=== PATIENT | male | born 1950 | race Caucasian/White ===

== ENCOUNTER 2017-02-01 11:50 | Inpatient (IN) | payer OTHER, MEDICARE ==
[~2017-02-01] VITALS: Ht 175.3 cm; Wt 61.7 kg
[2017-02-01] MEDS ORDERED: LISI-515 PO (15:30)
[2017-02-01] MEDS ORDERED: TIZA4CAP3 PO (15:30)
[2017-02-01] MEDS ORDERED: DIAZ5TAB PO (15:30)
[2017-02-01] MEDS ORDERED: PRAV40TA2 PO (15:30)
[2017-02-01] MEDS ORDERED: TRAM50TA PO (15:30)
[2017-02-01] MEDS ORDERED: METO25TA3 PO (15:30)
[2017-02-01] MEDS ORDERED: ASPI325T PO (15:30)
[2017-02-05 10:28] VITALS: BP 166/85; PULSE 69; RESP 16; TEMP 97.7; O2SAT 100
--- NOTE | 2017-02-05 10:32 | PD.VS.PN ---
Pre-operative Note Pre-operative diagnosis: PAD, B LE Planned procedure: R CAMERA SUPERVISOR TEA and B iliac angioplasty/stent Interval History: The patient has no interval changes since clinic that would preclude proceeding with the OR. Labs: Hct 43 plt 269 INR 0.9 creatinine 1.1 Blood: T&S Orders: Ancef 2g IV OCTOR Post-operative destination: PACU then [facility] Operative site marked: Yes Consent: Informed consent has been obtained from Pranav Ortiz. I have explained the procedure in detail and discussed the risks, benefits, and potential complications. All questions have been answered. Patient contact information: Friend [phone] Teddy Mckeon MD Feb 05, 2017 10:32
[2017-02-05] MEDS ORDERED: ceFAZolin 2 GM PREMIX 50 ML ONE (10:41)
[2017-02-05] MEDS ORDERED: PROTAMINE SULFATE 50 MG/5 ML VIAL ONE (10:41)
[2017-02-05] MEDS ORDERED: BUPIVACAINE/EPINEPHRINE 0.5% PF 30 ML VIAL ONE (10:41)
[2017-02-05] MEDS ORDERED: HEPARIN SODIUM - IV 10,000 UNITS/10 ML VIAL ONE (10:41)
[2017-02-05] MEDS ORDERED: DEXAMETHASONE SOD PHOS 4 MG/ML VIAL ONE (10:54)
[2017-02-05] MEDS ORDERED: FAMOTIDINE 20 MG/2 ML VIAL ONE (10:54)
[2017-02-05] MEDS ORDERED: MIDAZOLAM HCL 2 MG/2 ML VIAL ONE (10:54)
[2017-02-05] MEDS ORDERED: IOHEXOL 300 MG/ML 50 ML BTL (for RAD DIAG) ONE (12:18)
[2017-02-05] MEDS ORDERED: IOHEXOL 300 MG/ML 100 ML BTL (for Rad CT) OTHER ONE (12:20)
[2017-02-05] MEDS ORDERED: IOHEXOL 300 MG/ML 50 ML BTL (for RAD DIAG) OTHER ONE (12:20)
[2017-02-05] MEDS ORDERED: ePHEDrine/NS 25 MG/5 ML SYR IV ONE (12:28)
[2017-02-05] MEDS ORDERED: PROPOFOL 200 MG/20 ML AMP IV ONE (12:28)
[2017-02-05] MEDS ORDERED: ONDANSETRON HCL 4 MG/2 ML VIAL IV PUSH ONE (12:30)
[2017-02-05] MEDS ORDERED: SODIUM CHLORID 0.9% 500 ML INJ 500 ML IV ONE (12:31)
[2017-02-05] MEDS ORDERED: NORMOSOL R INJ 2,000 ML IV ONE (12:33)
--- NOTE | 2017-02-05 14:38 | HHI.PR ---
cc: Skyler Mcdonald MD Immediate Post Op Note Procedure Date: Feb 05, 2017 Pre Op Diagnosis: B LE PAD Post Op Diagnosis: B LE PAD Surgeon: eTddy Mckeon Substance Addiction Coordinator(s): none Procedure: 1. R ROLL SCALE WORKER and PFA TEA with patch angioplasty 2. R MILTON PRESCRIPTIONIST and stent w/ 9mm stent 3. R EIA PRESCRIPTIONIST and stent w/ 9mm stent 4. L EIA PRESCRIPTIONIST (7mm) 5. U/S guided access to L ROLL SCALE WORKER Findings: occluded R EIA, recanalized R MILTON and L EIA stenotic, successful recanalization Complications: none Specimen(s) removed: none for pathology Estimated blood loss: 250 mL Anesthesia: General Drains: None Fluids: 2600 mL x'oid; 1000 mL UOP IVF Patient to: PACU Patient Condition: Good Date/Time of Procedure: SEE SURGICAL CARE RECORD Teddy Mckeon MD Feb 05, 2017 14:38
[2017-02-05] MEDS ORDERED: DIAZEPAM 5 MG TAB PO PRN (14:45)
[2017-02-05] MEDS ORDERED: HYDROmorphone HCL 2 MG TAB PO PRN (14:45)
[2017-02-05] MEDS ORDERED: fentaNYL CITRATE 250 MCG/5 ML AMP ONE (15:04)
[2017-02-05] MEDS ORDERED: MORPHINE SULFATE 4 MG/ML INJ ONE (15:05)
[2017-02-05] MEDS ORDERED: CLOPIDOGREL 75 MG TAB PO ONE (16:00)
[2017-02-05 19:30] VITALS: BP 155/72; PULSE 102; RESP 18; TEMP 98.6; O2SAT 94
[2017-02-05] MEDS: METOPROLOL TARTRATE 25 MG TAB PO SCH (20:53)
[2017-02-05] MEDS ORDERED: ATORVASTATIN 40 MG TAB PO SCH (21:00)
[2017-02-05 23:00] VITALS: BP 88/57; PULSE 83; RESP 18; TEMP 98.7; O2SAT 97
[2017-02-06] VITALS (10 sets, daily range): BP systolic 85–119; BP diastolic 48–70; PULSE 70–95; RESP 17–18; TEMP 97.8–98.4; O2SAT 96–99
[2017-02-06 06:08] LABS: HEMATOCRIT 35.7 % (39.0-51.0); MEAN CELL VOLUME 98.7 FL (80.0-100.0); MEAN CORPUSCULAR HEMOGLOBIN 32.8 PG (27.0-34.0); MEAN CORPUSCULAR HGB CONC 33.3 % (32.0-36.0); PLATELET COUNT 190 TH/MM3 (150-450); RED BLOOD COUNT 3.61 MIL/MM3 (4.50-5.90); RED CELL DISTRIBUTION WIDTH 12.2 % (11.6-17.2); REVIEW FLAG FINAL; WHITE BLOOD COUNT 9.5 TH/MM3 (4.0-11.0)
[2017-02-06 06:35] LABS: BICARBONATE 28.6 MEQ/L (21.0-32.0); POTASSIUM 4.4 MEQ/L (3.5-5.1)
--- NOTE | 2017-02-06 07:02 | PD.VS.PN ---
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 had some appropriate incisional pain yesterday but po meds helped feet feel good per patient azul diet Objective Vitals/I&O Date Time Temp Pulse Resp B/P Pulse Ox O2 Delivery O2 Flow Rate FiO2 02/06/17 03:00 98.4 77 18 100/60 96 02/05/17 23:00 98.7 83 18 88/57 97 02/05/17 19:30 98.6 102 18 155/72 94 02/05/17 16:00 102 18 136/75 98 Room Air 02/05/17 15:45 109 18 159/68 98 Nasal Cannula 2 02/05/17 15:30 104 18 128/76 98 Nasal Cannula 2 02/05/17 15:15 108 18 135/80 98 Nasal Cannula 2 02/05/17 15:00 97.6 114 20 141/83 95 Nasal Cannula 2 02/05/17 10:28 97.7 69 16 166/85 100 Exam: R groin skin VAC in place L puncture site ok Pulses: palpable PT bilaterally Laboratory Laboratory Tests Test 02/05/17 02/06/17 10:30 05:47 Blood Type O POSITIVE Antibody Screen NEGATIVE Blood Bank Comment White Blood Count 9.5 Red Blood Count 3.61 Hemoglobin 11.9 Hematocrit 35.7 Mean Corpuscular Volume 98.7 Mean Corpuscular Hemoglobin 32.8 Mean Corpuscular Hemoglobin 33.3 Concent Red Cell Distribution Width 12.2 Platelet Count 190 Mean Platelet Volume 7.3 Sodium Level 136 Potassium Level 4.4 Chloride Level 100 Carbon Dioxide Level 28.6 Anion Gap 7 Blood Urea Nitrogen 15 Creatinine 1.20 Estimat Glomerular Filtration 61 Rate Random Glucose 115 Calcium Level 8.1 Assessment and Plan Plan 1. D/C Francois 2. Reg diet 3. OOB 4. Possibly d/c later today with po pain meds and plavix. If going home, will remove VAC dressing Discharge Planning today/tomorrow Teddy Mckeon MD Feb 06, 2017 07:02
[2017-02-06] MEDS: METOPROLOL TARTRATE 25 MG TAB PO SCH (08:06)
[2017-02-06] MEDS ORDERED: PANTOPRAZOLE SOD 40 MG DELAYED RELEASE TAB PO SCH (09:00)
[2017-02-06] MEDS ORDERED: CLOPIDOGREL 75 MG TAB PO ONE (09:00)
[2017-02-06] MEDS ORDERED: ASPIRIN 81 MG CHEW TAB PO SCH (09:00)
[2017-02-06] MEDS ORDERED: CLOPIDOGREL 75 MG TAB PO SCH (09:00)
[2017-02-06] MEDS ORDERED: LISINOPRIL 20 MG TAB PO SCH (09:00)
[2017-02-06] MEDS ORDERED: PERC5TAB12 PO (11:44)
[2017-02-06] MEDS ORDERED: PLAV75TA29 PO (11:44)
--- NOTE | 2017-02-06 11:59 | PD.VS.DC ---
Discharge Summary Admission Date: Feb 05, 2017 at 09:36 Discharge Date: Feb 06, 2017 Admission Diagnosis: (1) PAD (peripheral artery disease) Discharge Diagnosis: (1) PAD (peripheral artery disease) Status: Chronic Brief History from admission Mr. 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 Incision to right groin intact with slight erythema noted at the incision line, surrounding tissue soft and non tender NECK: Supple, No JVD CARDIOVASCULAR: +S1,S2 RESPIRATORY: Breath sounds equal and clear bilaterally. No accessory muscle use. GASTROINTESTINAL: Abdomen soft, non-tender, nondistended. MUSCULOSKELETAL: No cyanosis, or edema. Bilat PT pulses palpable, bilat feet warm with motor intact, cap refill 3sec Laboratory Tests Test 02/06/17 05:47 Red Blood Count 3.61 MIL/MM3 (4.50-5.90) Hemoglobin 11.9 GM/DL (13.0-17.0) Hematocrit 35.7 % (39.0-51.0) Estimat Glomerular Filtration 61 ML/MIN (>89) Rate Random Glucose 115 MG/DL (74-106) Calcium Level 8.1 MG/DL (8.5-10.1) Hospital Course: Mr. Ortiz is a 66/m with a hx of BLE PAD Admitted for surgical intervention R TEACHER RESOURCE TEA and B iliac angioplasty/stent Pt has done well post operatively Will follow-up with patient in our OPC in 2-3 weeks for a surveillance JON Allergies Uncoded Allergies Type Severity Reaction Last Updated Verified NKA Allergy Unknown 02/01/1702/04//16/174//174/17/174// 06:00 18:00 06:00 18:00 06:00 18:00 Intake Total 240 ml 480 ml Output Total 350 ml 750 ml Balance -110 ml -270 ml Intake Oral 240 ml 480 ml Output Urine Total 350 ml 750 ml # Bowel Movements 0 Laboratory Tests Test 02/05/17 02/06/17 10:30 05:47 Blood Type O POSITIVE Antibody Screen NEGATIVE Blood Bank Comment White Blood Count 9.5 TH/MM3 Red Blood Count 3.61 MIL/MM3 Hemoglobin 11.9 GM/DL Hematocrit 35.7 % Mean Corpuscular Volume 98.7 FL Mean Corpuscular Hemoglobin 32.8 PG Mean Corpuscular Hemoglobin 33.3 % Concent Red Cell Distribution Width 12.2 % Platelet Count 190 TH/MM3 Mean Platelet Volume 7.3 FL Sodium Level 136 MEQ/L Potassium Level 4.4 MEQ/L Chloride Level 100 MEQ/L Carbon Dioxide Level 28.6 MEQ/L Anion Gap 7 MEQ/L Blood Urea Nitrogen 15 MG/DL Creatinine 1.20 MG/DL Estimat Glomerular Filtration 61 ML/MIN Rate Random Glucose 115 MG/DL Calcium Level 8.1 MG/DL Procedure Category Date Status Time Type And Screen BBK 02/05/17 Complete 10:07 Heparin Inj (Heparin MED 02/05/17 Complete Inj) 10:41 Bupivacaine-Epi Pf MED 02/05/17 Complete 0.5% Inj (Sensorcaine 10:41 Cefazolin 2 Gm Premix MED 02/05/17 Complete (Ancef 2 Gm Premix 10:41 Protamine Sulfate Inj MED 02/05/17 Complete (Protamine Sulfate 10:41 Midazolam Inj (Versed MED 02/05/17 Complete Inj) 10:54 Dexamethasone Inj MED 02/05/17 Complete (Decadron Inj) 10:54 Famotidine Inj MED 02/05/17 Complete (Pepcid Inj) 10:54 Am Admit Pre Op Care [facility] 02/05/17 Complete Iohexol 300 Inj (Rad MED 02/05/[address]) (Omnipaque 300 12:20 Iohexol 300 Inj MED 02/05/17 Complete (Omnipaque 300 Inj) 12:20 Admit To Inpatient ADMITTING 02/05/17 Transmitted Code Status CODE 02/05/17 Transmitted 14:38 Vital Signs (Adult) AL 02/05/17 Complete 14:38 Dropper Tank Storage / AL 02/05/17 Complete Telemetry 14:38 Activity Oob Ad Zoila AL 02/06/17 In Process 08:[address] Spivey AL 02/05/17 In Process 14:38 ^ Precautions AL 02/05/17 In Process 14:38 ^ Vac Dressing To Be AL 02/05/17 In Process Used 14:38 Diet Heart Healthy DIET 02/05/17 Transmitted Dinner Basic Metabolic Panel LAB 02/06/17 Complete (Bmp) 06:00 Cbc No Diff, Includes LAB 02/06/17 Complete Plts 06:00 Aspirin Chew (Aspirin MED 02/06/17 In Process Chew) 09:00 Clopidogrel (Plavix) MED 02/05/17 Complete 16:00 Pantoprazole MED 02/06/17 In Process (Protonix) 09:00 Metoprolol Tartrate MED 02/05/17 In Process (Lopressor) 21:00 Atorvastatin (Lipitor) MED 02/05/17 In Process 21:00 Oxycodone (Roxicodone) MED 02/05/17 In Process 14:45 Hydromorphone MED 02/05/17 In Process (Dilaudid) 14:45 Inpatient ADMITTING 02/05/17 Transmitted Certification Diazepam (Valium) MED 02/05/17 In Process 14:45 Lisinopril (Prinivil) MED 02/06/17 In Process 09:00 Tizanidine Hcl MED 02/05/17 In Process (Zanaflex) 21:00 Clopidogrel (Plavix) MED 02/06/17 In Process 09:00 Enoxaparin Inj MED 02/06/17 In Process (Lovenox Inj) 14:00 Fentanyl Inj MED 02/05/17 Complete (Fentanyl Inj) 15:04 Morphine Inj MED 02/05/17 Complete (Morphine Inj) 15:05 Class Iv Pacu Ea 30 [facility] 02/05/17 Complete MIN General/Pacu [facility] 02/05/17 Complete Post Anesthesia Oxygen [facility] 02/05/17 Complete Remove Urinary AL 02/06/17 In Process Catheter 06:59 (Hub Use Only)Inp Phy CONS 02/06/17 Transmitted Cons/Ref Attending Discharge DISCHARGE 02/06/17 Transmitted Order Vital Signs Date Time Temp Pulse Resp B/P Pulse Ox O2 Delivery O2 Flow Rate FiO2 02/06/17 11:00 85 02/06/17 11:00 98.0 84 17 85/48 97 02/06/17 10:00 95 02/06/17 09:00 77 02/06/17 08:00 85 02/06/17 07:30 97.8 74 17 119/70 99 02/06/17 07:22 70 02/06/17 03:00 98.4 77 18 100/60 96 02/05/17 23:00 98.7 83 18 88/57 97 02/05/17 19:30 98.6 102 18 155/72 94 02/05/17 16:00 102 18 136/75 98 Room Air 02/05/17 15:45 109 18 159/68 98 Nasal Cannula 2 02/05/17 15:30 104 18 128/76 98 Nasal Cannula 2 02/05/17 15:15 108 18 135/80 98 Nasal Cannula 2 02/05/17 15:00 97.6 114 20 141/83 95 Nasal Cannula 2 02/05/17 10:28 97.7 69 16 166/85 100 Discharge Condition: Good Discharge Disposition: Discharge Home Discharge Instructions: Leave Dressing to Right groin on while drainage present (4x4 then non adhesive tape), Change daily or as needed if soiled Leave incision to right groin Open to air (if no drainage present) MAY shower with antibacterial soap then pat incision site dry AVOID tub baths AVOID applying creams or ointments to Incision site Call the office to report any new concerns or questions Any questions or concerns: Call [facility] [phone] Leigha Yanes Feb 06, 2017 11:59
[2017-02-06] MEDS ORDERED: ENOXAPARIN SODIUM 30 MG/0.3 ML SYRINGE SQ SCH (14:00)
--- NOTE | 2017-02-07 08:01 | MP ---
cc: SPIKE MCKEON MD DATE OF SURGERY 02/05/2017 PREOPERATIVE DIAGNOSIS Bilateral lower extremity claudication, peripheral arterial occlusive disease. POSTOPERATIVE DIAGNOSIS Bilateral lower extremity claudication, peripheral arterial occlusive disease. PROCEDURE 1. Right common femoral and profunda femoris endarterectomy with patch angioplasty. 2. Ultrasound guided access left common femoral artery. 3. Right common iliac artery stent placement with a 9 mm self-expanding stent. 4. Right external iliac artery stent placement with a 9 mm self-expanding stent. 5. Left external iliac artery angioplasty. ATTENDING SURGEON Spike Mckeon MD RESIDENT SURGEON None ANESTHESIA General INDICATIONS Mr. Ortiz is a 66 year-old gentleman with bilateral lower extremity peripheral occlusive disease. He is taken to the operating room for angiographic evaluation and treatment. There were no prior catheterization details for my review. Because of the nature of his condition and previously noted disease, he is offered a right groin reconstruction. DESCRIPTION OF THE PROCEDURE Informed consent was obtained from the patient. He was taken to the operating room and placed supine on the operating room table. An appropriate time out was taken to ensure the patient's identify, operative site and planned procedure. Two grams of Kefzol was initiated prior to the skin incision and will be discontinued after a single preoperative dose. Everyone in the room agreed with the time out and we proceeded. He was prepped from the nipples to his toes. A vertical incision was made in the patient's right groins and carried down through the subcutaneous tissue with electrocautery. The common femoral artery was identified and dissected free. The external iliac artery was encircled with a Vesseloop as were the circumflex vessels. The superficial femoral artery and profunda femoris were dissected free. The patient was systemically heparinized and throughout the remainder of the case the ACT was kept greater than 250 with reboluses of heparin. Proximal and distal control of the external iliac artery, profunda and SFA were obtained with profunda clamps and a longitudinal arteriotomy was made from the profunda all the way up to the proximal common femoral artery. The artery was endarterectomized without difficulty and a bovine pericardial patch was brought up onto the field and sewn on as a patch using running 5-0 Prolene suture. Under ultrasonographic guidance, the left common femoral artery was identified and accessed with a 21 gauge micropuncture needle and this was exchanged using Seldinger technique through the micropuncture sheath through which a 0.025 Glidewire was introduced. The micropuncture sheath was exchanged for a 6-Vietnamese sheath. The VCF catheter was advanced over the wire into the sheath and an aortogram was obtained. A 21 gauge micropuncture needle was used to access the patch on the right hand side. This was exchanged using Seldinger technique from the micropuncture sheath through which a 0.035 Glidewire was used and the micropuncture sheath was exchanged for a 6-Vietnamese sheath. A glide catheter was placed over the wire into the sheath and the Glidewire was exchanged for a SENIOR MEDIA BUYER wire. Multiple attempts were made to recanalize the occluded external iliac artery on the right from the retrograde fashion, but these were unsuccessful. As such, a Glidewire was passed through the left handed VCF catheter, passed down to the right hypogastric artery and the VCF catheter was advanced down to the right common iliac artery bifurcation. The Glidewire was exchanged for a SENIOR MEDIA BUYER wire and we attempted to pass to the iliac occlusion with a SENIOR MEDIA BUYER wire from the left. This was also unsuccessful. Ultimately, we were able to navigate a Glidewire from the left down to the common femoral artery on the right side and the Glidewire was exchange for a SENIOR MEDIA BUYER wire. The SENIOR MEDIA BUYER wire was easily palpated into the patch. The patchotomy was extended and the wire was grasped with a right angle and brought out through the patchotomy and the patchotomy was closed with a pursestring suture, but not tied down. A Quick-Cross catheter was placed backwards up through the through and through SENIOR MEDIA BUYER wire and the Quick-Cross catheter was advanced up to the aorta so that there were kissing catheters in the aorta with a VCF from the left and a Quick-Cross from the right. The SENIOR MEDIA BUYER wire was removed and a Daniel wire was introduced from the patient's right and a 6-Vietnamese sheath was then introduced over the Daniel. The iliac artery was angioplastied with an 8 mm balloon. The completion angiogram showed a flow-limiting dissection of the common iliac artery and this was treated with a 9 x 60 stent and extended with a 9 x 40 stent in the external iliac artery. At completion, angiogram showed excellent flow through the entire iliac system without any flow limiting extravasation or recoil. The wire, catheter and sheath were removed and the patchotomy was closed with a 6-0 Prolene suture. There was a nice pulse in the groin and a Doppler signal in the profunda and SFA and the groin was then packed temporarily. On the left hand side, a Stork wire was placed through the VCF catheter, the VCF was removed and the retrograde angiogram was obtained through the sheath and this showed a high grade proximal external iliac artery stenosis. It was treated with a 7 mm balloon. After angioplasty to 7 mm, there was excellent technical results, no recoil or extravasation. The wire, catheter and sheath were removed from the left hand side and the left groin was closed with an Angio-Seal. On the patient's right, the groin wound was made hemostatic and closed with 2-0 Polysorb, 3-0 Polysorb and 4-0 Monocryl. The sponge and needle counts were correct at the end of the case and I was present and scrubbed for the entire procedure. MD DENISE Dove/MARY JO /9:36 PM /7:25 AM MTDMir
== END 2017-02-06 13:30 | disposition home or self-care (01) | DRG 254 ==
LOC: HSDI 02-05 09:36 → HCIN 02-05 16:50
PROVIDERS: ADMIT Surgery; ATTEND Surgery
PROC: 047C3DZ Dilation of Right Common Iliac Artery with Intraluminal Device, Percutaneous Approach (ICD-10-PCS; 2017-02-05)
PROC: 047H3DZ Dilation of Right External Iliac Artery with Intraluminal Device, Percutaneous Approach (ICD-10-PCS; 2017-02-05)
PROC: 047J3ZZ Dilation of Left External Iliac Artery, Percutaneous Approach (ICD-10-PCS; 2017-02-05)
PROC: 04CK0ZZ Extirpation of Matter from Right Femoral Artery, Open Approach (ICD-10-PCS; principal; 2017-02-05 11:00)
PROC: 04UK0KZ Supplement Right Femoral Artery with Nonautologous Tissue Substitute, Open Approach (ICD-10-PCS; 2017-02-05 11:00)
DX: I73.9 Peripheral vascular disease, unspecified (principal); J44.9 Chronic obstructive pulmonary disease, unspecified; I10 Essential (primary) hypertension; E78.5 Hyperlipidemia, unspecified; I25.10 Atherosclerotic heart disease of native coronary artery without angina pectoris; Z95.5 Presence of coronary angioplasty implant and graft; F17.210 Nicotine dependence, cigarettes, uncomplicated; K21.9 Gastro-esophageal reflux disease without esophagitis; F10.10 Alcohol abuse, uncomplicated
CPT/HCPCS: 75710; 76937; 80048; 85027; 86850; 86900; 86901; C1725; C1769; J0690; J1100; J1644; J2250; J2270; J2405; J2720; J3010; J7040; Q9967

== ENCOUNTER → 2017-02-01 | Outpatient (CLI) | payer OTHER ==
[~2017-02-01] MED LIST: ASPI325T PO; DIAZ5TAB PO; LISI-515 PO; METO25TA3 PO; PERC5TAB12 PO; PLAV75TA29 PO; PRAV40TA2 PO; TIZA4CAP3 PO; TRAM50TA PO
--- NOTE | 2017-02-01 13:34 | RADRPT ---
EXAM DATE/TIME: 02/01/2017 12:56 [place] COMPARISON: No previous studies available for comparison. INDICATIONS : Evalauate for pneumonia, pnuemothorax, or communicable disease. Pre op for thromboendarterectomy. MEDICAL HISTORY : None. SURGICAL HISTORY : None. ENCOUNTER: Initial ACUITY: 1 day PAIN SCORE: 0/10 LOCATION: Bilateral chest FINDINGS: PA and lateral views of the chest demonstrate the lungs to be symmetrically aerated without evidence of mass, infiltrate or effusion. The cardiomediastinal contours are unremarkable. Osseous structure s are intact. CONCLUSION: Normal examination. Farrukh Andrade MD on February 01, 2017 at 13:33 Board Certified Radiologist. This report was verified electronically.
[2017-02-01 14:28] LABS: AUTOMATED NEUTROPHIL # 5.7 TH/MM3 (1.8-7.7); BASOPHIL % 0.6 % (0.0-2.0); EOSINOPHIL # 0.4 TH/MM3 (0-0.4); EOSINOPHIL % 4.4 % (0.0-4.0); HEMATOCRIT 42.8 % (39.0-51.0); HEMO FLAGS DIFF FINAL; LYMPH % 15.7 % (9.0-44.0); LYMPHOCYTE # 1.3 TH/MM3 (1.0-4.8); MEAN CELL VOLUME 98.1 FL (80.0-100.0); MEAN CORPUSCULAR HEMOGLOBIN 33.5 PG (27.0-34.0); MEAN CORPUSCULAR HGB CONC 34.1 % (32.0-36.0); MONO % 9.3 % (0.0-8.0); PLATELET COUNT 269 TH/MM3 (150-450); RED BLOOD COUNT 4.36 MIL/MM3 (4.50-5.90); RED CELL DISTRIBUTION WIDTH 12.4 % (11.6-17.2); WHITE BLOOD COUNT 8.1 TH/MM3 (4.0-11.0)
[2017-02-01 14:37] LABS: BLOOD, URINE NEG (NEG); COMMENT (UR) CULT NOT INDICATED; CULTURE IF INDICATED CULT NOT INDICATED; GLUCOSE,URINE NEG (NEG); KETONE, URINE NEG (NEG); MUCUS URINE FEW /lpf (OCC); NITRITE,URINE NEG (NEG); URINE COLOR LIGHT-YELLOW (YELLW/STRAW)
[2017-02-01 14:50] LABS: BICARBONATE 26.1 MEQ/L (21.0-32.0); POTASSIUM 4.9 MEQ/L (3.5-5.1)
--- NOTE | 2017-02-01 17:20 | EKG ---
Date Performed: 02/01/2017 Time Performed: 12:31:58 PTAGE: 66 years EKG: Sinus rhythm RIGHT BUNDLE BRANCH BLOCK SEPTAL MYOCARDIAL INFARCTION, OF INDETERMINATE AGE ABNORMAL ECG NO PREVIOUS TRACING DOCTOR: Morales Botello Interpretating Date/Time 02/01/2017 17:19:34
== END ==
LOC: CPRE 11:43
PROVIDERS: ATTEND Surgery
DX: Z01.810 Encounter for preprocedural cardiovascular examination (principal); Z01.812 Encounter for preprocedural laboratory examination; I73.9 Peripheral vascular disease, unspecified; I45.10 Unspecified right bundle-branch block
CPT/HCPCS: 36415; 71020; 80048; 81001; 85025; 93005